=== PATIENT | female | born 1960 | race Two or more races ===

== ENCOUNTER → 2024-08-09 | Outpatient (BNVA) | payer MEDICAID, SELFPAY | END | disposition home or self-care (01) | PROVIDERS: PCP Nurse Practitioner Family; Referring Provider Nurse Practitioner Family; Visit Provider Nurse Practitioner Family | DX: E11.9 Type 2 diabetes mellitus without complications (principal); Z79.4 Long term (current) use of insulin | CPT/HCPCS: 83036; 99213 ==

== ENCOUNTER → 2024-09-01 | Outpatient (CLI) | payer MEDICAID, SELFPAY ==
--- NOTE | 2024-09-01 08:15 | XR_ITS ---
Examination: Screening digital mammography, bilateral Computer aided detection 3-D breast Tomosynthesis, bilateral Date and time of exam: September 01, 2024 0838 hrs. Compared to mammograms dating to December 03, 2014 Indication: Screening Technique: Nonmagnified MLO, CC views of the breasts to been obtained, reconstructed from 3-D Tomosynthesis images. R2 computer aided detection program utilized for evaluation of suspicious masses and/or abnormal calcifications. 3-D Tomosynthesis images obtained. Findings: Scattered areas of fibroglandular density. Benign calcifications. No interval suspicious masses Impression: BI-RADS category II: Benign Findings. Recommend 1 year follow-up mammogram.
== END | disposition home or self-care (01) ==
LOC: CDIM 08:28
PROVIDERS: Referring Provider Nurse Practitioner Family; Visit Provider Nurse Practitioner Family
DX: Z12.31 Encounter for screening mammogram for malignant neoplasm of breast (principal); R92.323 Mammographic fibroglandular density, bilateral breasts; R92.1 Mammographic calcification found on diagnostic imaging of breast
CPT/HCPCS: 77063; 77067

== ENCOUNTER → 2024-09-16 | Outpatient (CLI) | payer MEDICAID, SELFPAY ==
--- NOTE | 2024-09-16 09:45 | XR_ITS ---
Examination: Abdomen sonogram, complete Date and time of exam: September 16, 2024 0839 hrs. Indications: Diagnosis chronic kidney disease stage III. Technique: Multiple real-time grayscale transabdominal sonographic images of the abdomen have been obtained. Findings: Normal gallbladder Normal common bile duct 0.6 cm no common bile duct stones Pancreatic head 2.1 cm Aorta not enlarged Liver 13.6 cm fatty infiltration Normal hepatopedal portal venous flow Patent IVC Right kidney 10.7 cm renal cortex 1.5 cm Left kidney 10.9 cm cortex 1.5 cm Mild renal parenchymal scar formation Spleen 10.2 cm Impression: Negative for cholelithiasis, negative for cholecystitis No common bile duct stones Fatty liver
== END | disposition home or self-care (01) ==
PROVIDERS: PCP Internal Medicine; Referring Provider Internal Medicine; Visit Provider Internal Medicine
DX: K76.0 Fatty (change of) liver, not elsewhere classified (principal)
CPT/HCPCS: 76700

== ENCOUNTER → 2024-09-17 | Outpatient (BNVA) | payer MEDICAID, SELFPAY | END | disposition home or self-care (01) | PROVIDERS: PCP Nurse Practitioner Family; Referring Provider Nurse Practitioner Family; Visit Provider Nurse Practitioner Family | DX: Z71.2 Person consulting for explanation of examination or test findings (principal); Z79.4 Long term (current) use of insulin; R94.5 Abnormal results of liver function studies; E78.5 Hyperlipidemia, unspecified; I12.9 Hypertensive chronic kidney disease with stage 1 through stage 4 chronic kidney disease, or unspecified chronic kidney disease; N18.9 Chronic kidney disease, unspecified; R60.9 Edema, unspecified; E11.22 Type 2 diabetes mellitus with diabetic chronic kidney disease | CPT/HCPCS: 99212; G0463 ==

== ENCOUNTER → 2025-01-12 | Outpatient (CLI) | payer MEDICAID, SELFPAY ==
--- NOTE | 2025-01-12 | XR_ITS ---
Examination: PA lateral chest 2 views TECHNIQUE: Upright PA lateral chest 2 views Date and time: January 12, 2025 0728 hours Comparison May 18, 2024 INDICATIONS: +PPD FINDINGS: Normal heart size. Lungs are clear. Moderate osteopenia IMPRESSION: No active disease No radiographic findings of tuberculosis
== END | disposition home or self-care (01) ==
LOC: CDIM 06:56
PROVIDERS: PCP Nurse Practitioner Family; Referring Provider Nurse Practitioner Family; Visit Provider Nurse Practitioner Family
DX: R76.12 Nonspecific reaction to cell mediated immunity measurement of gamma interferon antigen response without active tuberculosis (principal)
CPT/HCPCS: 71046